=== PATIENT | male | born 1975 | race Hispanic/Latino ===

== ENCOUNTER 2017-01-02 07:54 | Observation (INO) | payer MEDICARE, OTHER ==
[2017-01-02 08:27] VITALS: BMI 31.0
[2017-01-02 08:30] VITALS: RESP 18
[2017-01-02] MEDS ORDERED: Sodium Chloride 0.9% 1,000 ML IV STA ×2 (08:37→12:03)
--- NOTE | 2017-01-02 08:51 | ED PDOC ---
Arrival/HPI - General Chief Complaint: Back Pain Time Seen by Provider: 01/02/17 08:37 Historian: Patient - History of Present Illness Narrative History of Present Illness (Text): 01/02/17 08:50 41 year old male presents to the emergency department with left flank pain radiating to the left lower quadrant with hematuria, nausea, and vomiting since 04:30 today. Patient states this feels similar to his previous kidney stones. Denies groin pain. Time/Duration: 4-6 hours Symptom Onset: Sudden Symptom Course: Unchanged Modifying Factors (Text): None Past Medical History - Provider Review Nursing Documentation Reviewed: Yes - Cardiac Hx Cardiac Disorders: Yes Hx Hypertension: Yes Hx Pacemaker: No - Pulmonary Hx Respiratory Disorders: No - Neurological Hx Neurological Disorder: No Hx Paralysis: No - HEENT Hx HEENT Disorder: No - Renal Hx Renal Disorder: No - Endocrine/Metabolic Hx Endocrine Disorders: No - Hematological/Oncological Hx Blood Transfusions: No - Integumentary Hx Dermatological Disorder: No - Musculoskeletal/Rheumatological Hx Musculoskeletal Disorders: Yes Hx Back Pain: Yes - Gastrointestinal Hx Gastrointestinal Disorders: No - Genitourinary/Gynecological Hx Genitourinary Disorders: No - Psychiatric Hx Psychophysiologic Disorder: No Hx Substance Use: No - Surgical History Hx Joint Replacement: Yes (knee replacement) - Anesthesia Hx Anesthesia Reactions: Yes (DURING BACK SX-"PARALYZING MED GIVEN BEFORE I WAS ASLEEP,I COULDNT BREATHE") Hx Malignant Hyperthermia: No Family/Social History - Physician Review Nursing Documentation Reviewed: Yes Family/Social History: Unknown Family HX Smoking Status: Heavy Smoker > 10 Cigarettes Daily Hx Alcohol Use: No Hx Substance Use: No Allergies/Home Meds Allergies/Adverse Reactions: Allergies azithromycin [From Zithromax Z-Facundo] Allergy (Severe, Verified 01/02/17 08:28) ANAPHYLAXIS moxifloxacin HCl [From Avelox] Allergy (Severe, Verified 01/02/17 08:28) ANAPHYLAXIS ciprofloxacin [From Cipro] Allergy (Verified 01/02/17 08:28) ANAPHYLAXIS Home Medications: Home Meds Medication Instructions Recorded Confirmed ALPRAZolam [Xanax] 0.25 mg PO TID PRN 12/23/15 01/02/17 Escitalopram [Lexapro] 20 mg PO DAILY 12/23/15 01/02/17 Oxycodone HCl [Roxicodone] 30 mg PO QID 01/02/17 01/02/17 Review of Systems - Physician Review All systems were reviewed & negative as marked: Yes Physical Exam - Physical Exam Narrative Physical Exam (Text): - Review of Systems Constitutional: Normal. absent: Fatigue, Weight Change, Fevers Eyes: Normal ENT: Normal Respiratory: Normal absent: SOB, Cough, Sputum Cardiovascular: Normal absent: Chest pain, Palpitations, Syncope Gastrointestinal: Abdominal pain, Nausea, Vomiting absent: Diarrhea Genitourinary: Hematuria absent: Dysuria, Frequency, Groin pain Musculoskeletal: Left flank pain. absent: Arthralgias, Back Pain, Neck Pain Skin: Normal Neurological: Normal absent: Focal Weakness Endocrine: Normal Hemo/Lymphatic: Normal Psychiatric: Normal - Physical exam Patient appears age appropriate, speaking full sentences without difficulty - Systems Exam Head: Present: Atraumatic, Normocephalic Pupils: Present: PERRL Extraocular Muscles: Present: EOMI Conjunctiva: Present: Normal Mouth: Present: Moist Mucous Membranes Neck: Present: Normal Range of Motion. No: MIDLINE TENDERNESS, Paraspinal Tenderness Respiratory/Chest: Present: Clear to Auscultation, Good Air Exchange. No: Respiratory Distress, Accessory Muscle Use, Tachypneic Cardiovascular: Present: Regular Rate and Rhythm, Normal S1, S2, Peripheral Pulses Present. No: Murmurs Abdomen: Present: Normal Bowel Sounds, No: Tenderness, Peritoneal Signs, Rebound, Guarding, Distention Back: Present: Normal Inspection. No: Midline Tenderness, Paraspinal Tenderness , CVA tenderness Upper Extremity: Present: Normal Inspection. No: Cyanosis, Edema Lower Extremity: Present: Normal Inspection. No: Edema Neurological: Present: GCS=15, Speech Normal, cranial nerves II through XII fully intact with no cerebellar abnormality, neuro-sensory fully intact. No focal neurological deficits. Skin: Present: Warm, Dry, Normal Color. No: Rashes Lymphatic: Present: OX3, NI, NC Psychiatric: Present: Alert, Oriented x 3, Normal Insight, Normal Concentration Vital Signs Reviewed: Yes Vital Signs Temp Pulse Resp BP Pulse Ox 01/02/17 11:22 86 18 138/79 97 01/02/17 10:11 90 18 140/85 97 01/02/17 08:29 98 F 87 18 198/104 H 97 Temperature: Afebrile Blood Pressure: Hypertensive Pulse: Regular Respiratory Rate: Normal Appearance: Positive for: Well-Appearing, Non-Toxic, Uncomfortable Pain Distress: Mild Mental Status: Positive for: Alert and Oriented X 3 Medical Decision Making ED Course and Treatment: Impression: 41 year old male presents to the emergency department with left flank pain radiating to the left lower quadrant with hematuria, nausea, and vomiting since 04:30 today. On physical exam, patient has no acute findings. Differential Diagnosis include but are not limited to: Renal colic, cystitis, nonspecific abdominal pain Plan: -- CT Abdomen/Pelvis -- Toradol, Zofran -- Labs -- Reassess and disposition Progress Notes: 01/02/17 10:21 On reevaluation, patient states he feels better. He states the pain has almost resolved. PROCEDURE: CT Abdomen and Pelvis without intravenous contrast Wafer Machine Operator : Luis Antonio Elder MD Report Date : 01/02/2017 10:29:48 KIDNEYS AND URETERS: There is an obstructing 4 mm left distal ureteral stone at the UVJ seen on coronal image 71 and axial image 158 of series 2. There is moderate hydronephrosis and perinephric stranding. There is swelling of the left kidney. Bilateral nephrolithiasis is seen. IMPRESSION: Obstructing 4 mm left distal ureteral stone with moderate hydronephrosis and perinephric stranding 01/02/17 12:22 pt still co pain flomax, fluids, toradol ordered dw Dr. Fonseca, accepted admission to his service Dr. Juliet boyce pt aware of and agrees with plan - Lab Interpretations Lab Results: 01/02/17 08:40 01/02/17 09:44 Lab Results 01/02/17 09:44: Sodium 139, Potassium 4.6, Chloride 104, Carbon Dioxide 28, Anion Gap 12, BUN 12, Creatinine 1.0, Est GFR ( Amer) > 60, Est GFR (Non- Af Amer) > 60, Random Glucose 102, Calcium 9.1, Total Bilirubin 0.7, AST 41, ALT 55, Alkaline Phosphatase 73, Total Protein 7.2, Albumin 4.3, Globulin 2.9, Albumin/Globulin Ratio 1.5 01/02/17 08:40: WBC 13.4 H D, RBC 5.11, Hgb 15.2, Hct 43.9, MCV 85.9, MCH 29.7, MCHC 34.6, RDW 13.3, Plt Count 161, MPV 11.9 H, Gran % 80.2 H, Lymph % (Auto) 13.4 L, [place] % (Auto) 5.7, Eos % (Auto) 0.5 L, Baso % (Auto) 0.2, Gran # 10.74 H , Lymph # 1.8, [place] # 0.8 H, Eos # 0.1, Baso # 0.03 01/02/17 08:00: Urine Color Yellow, Urine Appearance Clear, Urine pH 6.5, Ur Specific [place] 1.020, Urine Protein Negative, Urine Glucose (UA) Negative, Urine Ketones Negative, Urine Blood Large H, Urine Nitrate Negative, Urine Bilirubin Negative, Urine Urobilinogen 0.2, Ur Leukocyte Esterase Negative, Urine RBC 25 - 30, Urine WBC Negative - RAD Interpretation Radiology Orders: 01/02/17 08:38 ABD & PELVIS W/O PO OR IV CONT [CT] Stat - Medication Orders Current Medication Orders: Sodium Chloride (Sodium Chloride 0.9%) 1,000 mls @ 1,000 mls/hr IV .Q1H STA Stop: 01/02/17 13:02 Discontinued Medications Sodium Chloride (Sodium Chloride 0.9%) 1,000 mls @ 1,000 mls/hr IV .Q1H STA Stop: 01/02/17 09:36 Last Admin: 01/02/17 08:52 Dose: 1,000 mls/hr Ketorolac Tromethamine (Toradol) 30 mg IVP STAT STA Stop: 01/02/17 08:38 Last Admin: 01/02/17 08:52 Dose: 30 mg Ketorolac Tromethamine (Toradol) 15 mg IVP STAT STA Stop: 01/02/17 12:04 Morphine Sulfate (Morphine) 10 mg IVP STAT STA Stop: 01/02/17 11:11 Last Admin: 01/02/17 11:18 Dose: 10 mg Ondansetron HCl (Zofran Inj) 4 mg IVP STAT STA Stop: 01/02/17 08:39 Last Admin: 01/02/17 08:52 Dose: 4 mg Tamsulosin HCl (Flomax) 0.4 mg PO STAT STA Stop: 01/02/17 11:11 Last Admin: 01/02/17 11:26 Dose: 0.4 mg - Scribe Statement The provider has reviewed the documentation as recorded by the Gustavo Richards Provider Scribe Attestation: All medical record entries made by the Gustavo were at my direction and personally dictated by me. I have reviewed the chart and agree that the record accurately reflects my personal performance of the history, physical exam, medical decision making, and the department course for this patient. I have also personally directed, reviewed, and agree with the discharge instructions and disposition. Disposition/Present on Arrival - Present on Arrival Any Indicators Present on Arrival: No History of DVT/PE: No History of Uncontrolled Diabetes: No Urinary Catheter: No History of Decub. Ulcer: No History Surgical Site Infection Following: None - Disposition Have Diagnosis and Disposition been Completed?: Yes Diagnosis: Renal colic Disposition: HOME/ ROUTINE Disposition Time: 12:19 Patient Plan: Observation Condition: FAIR Referrals: Francisco Javier Fonseca JD, MD [Primary Care Provider] - Follow up with primary
[2017-01-02 08:56] LABS: ADD MANUAL DIFF? NO
[2017-01-02 09:00] LABS: BASO # 0.03 K/mm3 (0.0-2.0); BASO % 0.2 % (0.0-3.0); EOS # 0.1 (0.0-0.7); EOS % 0.5 % (1.5-5.0); GRAN # 10.74 (1.4-6.5); GRAN % 80.2 % (50.0-68.0); HEMATOCRIT 43.9 % (42.0-52.0); LYMPH # 1.8 (1.2-3.4); LYMPH % 13.4 % (22.0-35.0); MEAN CELL VOLUME 85.9 fL (80.0-105.0); MEAN CORPUSCULAR HEMOGLOBIN 29.7 pg (25.0-35.0); MEAN CORPUSCULAR HGB CONC 34.6 g/dl (31.0-37.0); MEAN PLATELET VOLUME 11.9 fl (7.0-11.0); MONO # 0.8 (0.1-0.6); MONO % 5.7 % (1.0-6.0); PLATELET COUNT 161 10^3/uL (120.0-450.0); RED CELL DISTRIBUTION WIDTH 13.3 % (11.5-14.5); WHITE BLOOD COUNT 13.4 10^3/ul (4.5-11.0)
[2017-01-02 09:15] LABS: PH,URINE 6.5 (4.7-8.0); URINE BILIRUBIN NEGATIVE (NEGATIVE); URINE BLOOD LARGE (NEGATIVE); URINE GLUCOSE (UA) NEGATIVE (NEGATIVE); URINE KETONE NEGATIVE (NEGATIVE); URINE LEUKOCYTE ESTERASE NEGATIVE Leu/uL (NEGATIVE); URINE PROTEIN NEGATIVE mg/dL (<30 mg/dL); URINE UROBILINOGEN 0.2 E.U./dL (<1 E.U./dL)
[2017-01-02 09:20] LABS: URINE APPEARANCE CLEAR (CLEAR); URINE COLOR YELLOW (YELLOW)
[2017-01-02 09:41] LABS: URINE RBC 25 - 30 /hpf (0-2); URINE WBC NEGATIVE /hpf (0-6)
[2017-01-02 09:59] LABS: ALB/GLOB RATIO 1.5 (1.1-1.8); ALKALINE PHOSPHATASE 73 U/L (38-133); ALT/SGPT 55 U/L (7-56); AST/SGOT 41 U/L (15-59); BILIRUBIN,TOTAL 0.7 mg/dL (0.2-1.3); BLOOD UREA NITROGEN 12 mg/dL (7-21); CALCIUM 9.1 mg/dL (8.4-10.5); CARBON DIOXIDE 28 mmol/L (21-33); CHLORIDE 104 mmol/L (98-107); GFR AFRICAN-AMERICAN > 60; GLUCOSE,RANDOM 102 mg/dL (70-110); POTASSIUM 4.6 mmol/L (3.6-5.0); SODIUM 139 mmol/L (132-148); TOTAL PROTEIN 7.2 g/dL (5.8-8.3)
--- NOTE | 2017-01-02 10:31 | CT ---
PROCEDURE: CT Abdomen and Pelvis without intravenous contrast HISTORY: Renal colic COMPARISON: 12/16/2015 TECHNIQUE: Without contrast.. Contrast Dose: Radiation dose: Total exam DLP = 1035 mGy-cm. This CT exam was performed using one or more of the following dose reduction techniques: Automated exposure control, adjustment of the mA and/or kV according to patient size, and/or use of iterative reconstruction technique. FINDINGS: LOWER THORAX: Unremarkable. LIVER: Unremarkable. No gross lesion or ductal dilatation. GALLBLADDER AND BILE DUCTS: Unremarkable. PANCREAS: Unremarkable. No gross lesion or ductal dilatation. SPLEEN: Unremarkable. ADRENALS: Unremarkable. No mass. KIDNEYS AND URETERS: There is an obstructing 4 mm left distal ureteral stone at the UVJ seen on coronal image 71 and axial image 158 of series 2. There is moderate hydronephrosis and perinephric stranding. There is swelling of the left kidney. Bilateral nephrolithiasis is seen. VASCULATURE: Unremarkable. No aortic aneurysm. BOWEL: Unremarkable. No obstruction. No gross mural thickening. APPENDIX: Unremarkable. Normal appendix. PERITONEUM: Unremarkable. No free fluid. No free air. LYMPH NODES: Unremarkable. No enlarged lymph nodes. BLADDER: Unremarkable. REPRODUCTIVE: Unremarkable. BONES: No acute fracture. OTHER FINDINGS: None. IMPRESSION: Obstructing 4 mm left distal ureteral stone with moderate hydronephrosis and perinephric stranding
[2017-01-02] MEDS: Sodium Chloride 0.9% 1,000 ML IV SCH ×2 (14:10→23:30)
[2017-01-02] MEDS: Morphine 2 mg/ml ISec IVP PRN ×2 (16:08→21:43)
--- NOTE | 2017-01-02 16:34 | CARD ---
APPROVED REPORT EKG Measurement Heart [id number] <Conclusion> Normal sinus rhythm NSSTW changes Prolonged QT
[2017-01-02] MEDS ORDERED: Pneumococcal 23-Valent Vaccine IM ONE (19:56)
[2017-01-03] MEDS: Sodium Chloride 0.9% 1,000 ML IV SCH (08:42)
[2017-01-03 08:55] VITALS: BP 151/78; PULSE 70; TEMP 98.5; O2SAT 99
--- NOTE | 2017-01-03 14:16 | DS ---
HOSPITAL COURSE: The patient is a 41-year-old male, who was admitted yesterday with left distal uret eral kidney stone which she passed this morning. Vital signs and laboratory findings are as per admission history and physical dictated 01/03/2017. The patient was discharged to home on the following medications: Roxicodone 30 mg 4 times daily, Marvel apro 20 mg daily, Xanax 0.25 mg 3 times daily. He will be maintained on a low sodium diet, activitie s ad libitum. He will be seen in the office within the next 1-2 weeks and will follow with Dr. Chung and Dr. Mcneill as well. Francisco Javier Fonseca JD, MD cc: [id number] TT: 01/03/2017 14:15:44 kellie
--- NOTE | 2017-01-03 14:18 | HP ---
HISTORY OF PRESENT ILLNESS: The patient is a 41-year-old male who presented to the Emergency Departm ent on 01/02/2017 with left flank pain and hematuria. The patient had a CT scan of the abdomen and p lenard which showed a 4 mm left distal ureteral stone with moderate hydronephrosis and perinephric str anding. The patient was admitted for further evaluation and management. This morning he passed his kidney stone with complete relief of symptoms. He has no hematuria, no flank or abdominal pain, no f ever, no chills, no nausea, no vomiting at the present time and he is medically stable for discharge. PAST MEDICAL HISTORY: Includes degenerative joint disease, status post right total knee replacement with revision with chronic pain and opiate dependence, hypertension, obstructive sleep apnea and asth ma. PAST SURGICAL HISTORY: Includes right total knee replacement. CURRENT MEDICATIONS: Include Roxicodone 30 mg 4 times daily, Lexapro 20 mg daily, Xanax 0.25 mg 3 ti mes daily. ALLERGIES: The patient has no known drug allergies. FAMILY HISTORY: Noncontributory. SOCIAL HISTORY: The patient smokes 1/2 pack per day for the past 20 years. There is no history of a lcohol or IV drug use. REVIEW OF SYSTEMS: Essentially negative other than above. The patient denies chest pain, shortness of breath. There is no swelling in the legs. There is no fever, chills, cough or hemoptysis. PHYSICAL EXAMINATION: GENERAL: The patient is a well-developed male in no acute distress. VITAL SIGNS: Blood pressure 151/78, temperature 98.5, pulse 70, respiratory rate 18. HEENT: Head is normocephalic, atraumatic. Pupils equal, round and reactive to light. Extraocular m ovements intact. NECK: Supple with no thyromegaly, no carotid bruit, no adenopathy. LUNGS: Clear. HEART: Regular rate and rhythm with no murmurs, rubs or gallops. ABDOMEN: Soft, nontender, bowel sounds are normoactive. There is no left CVA tenderness. No guardi ng, no rebound. EXTREMITIES: Without cyanosis, clubbing or edema. There are healed surgical scars involving the rig ht knee. NEUROLOGIC: The patient is awake and oriented x 3 without focal sensory or motor deficits. SKIN: Warm and dry. LABORATORY DATA: WBC is 13.4, hemoglobin 15.2, hematocrit 43.9. CMP is within normal limits. IMPRESSION: 1. Recurrent nephrolithiasis. 2. Hypertension. 3. Obstructive sleep apnea. 4. Asthma. 5. Degenerative joint disease, status post right total knee replacement. PLAN: The patient will be seen in consultation by Dr. Chung/Charito. Will discharge to home in stable c ondition. Follow up as an outpatient in 1-2 weeks. The patient will be discharged on the medication s as above. The stone that he passed will be sent for analysis. Francisco Javier Fonseca JD, MD cc: [id number] TT: 01/03/2017 14:17:08 ri
== END 2017-01-03 11:01 | disposition home or self-care (01) ==
LOC: ED 07:54 → ERH 12:24 → 3RSO 14:09
PROVIDERS: ADMIT Internal Medicine; ATTEND Internal Medicine
DX: N13.2 Hydronephrosis with renal and ureteral calculous obstruction (principal); I10 Essential (primary) hypertension; G89.29 Other chronic pain; F11.20 Opioid dependence, uncomplicated; M19.90 Unspecified osteoarthritis, unspecified site; J45.909 Unspecified asthma, uncomplicated; G47.33 Obstructive sleep apnea (adult) (pediatric); F17.210 Nicotine dependence, cigarettes, uncomplicated; Z96.651 Presence of right artificial knee joint
CPT/HCPCS: 74176; 80053; 81001; 85025; 93005; 96374; 96375; 96376; 99284; G0378; J1885; J2270; J2405; J7040